=== PATIENT | female | born 1980 | race Caucasian/White ===

== ENCOUNTER 2023-07-24 20:57 | Day surgery (SDC) | payer OTHER, SELFPAY ==
[2023-07-24] VITALS (8 sets, daily range): BP systolic 101–123; BP diastolic 62–81; BMI 30.2; BMI 28.9
--- NOTE | 2023-07-24 13:41 | EDRN ---
Beau HOLLY in to see pt..
--- NOTE | 2023-07-24 13:50 | ED.GENMED ---
History of Present Illness
<Jose G Saavedra PA-C - Last Filed: 07/28/23 08:25>
General
Chief Complaint: Rectal Bleeding
Source: patient
Exam Limitations: none
Time Seen by Provider: 07/24/23 13:33
Travel History
Have you had any contact with someone who has COVID-19?: No
Do you have any symptoms of coronavirus? Fever > 100 degrees, chills, cough, shortness of breath, sore throat, loss of taste or smell, muscle aches, or headache?: No
History of Present Illness
History of Present Illness:
43-year-old female otherwise healthy presents complaining of 6 days worth of intermittently dark stools. She notes some dark or black in color most of them are formed however more recently it was loose. She also notes central abdominal pain aching
in nature does not radiate to the back no associated chest pain or shortness of breath. No aggravating or alleviating factors. Denies regular use of NSAIDs or alcohol. She has a couple coffee a day. No urinary symptoms. No known sick contacts.
No fever.
Phy Exam
<Jose G Saavedra PA-C - Last Filed: 07/28/23 08:25>
Physical Exam
Physical Exam:
General: Well-appearing female no acute respiratory distress
HEENT: Normocephalic atraumatic neck is supple
Heart: Regular rate and rhythm no murmurs
Lungs: Clear to auscultation bilaterally no wheezing
Abdomen: Soft mildly diffusely tender mainly to the lower quadrants bilaterally. No guarding or rebound normal bowel sounds nondistended no costovertebral angle tenderness
Extremities: No cyanosis or edema
Skin: Warm no rash
Course
<Jose G Saavedra PA-C - Last Filed: 07/28/23 08:25>
Orders/Labs/Results
Orders:
Orders
07/24/23 13:43
CT Abd/pelvis W Iv Cont Urgent
Comment:
Reason For Exam: abdominal pain, dark stool
07/24/23 14:11
Type+Screen Urgent
Complete Blood Count/With Diff Urgent
Comprehensive Metabolic Panel Urgent
HCG, Serum Qualitative Screen Urgent
Comment: ADD ON
07/24/23 14:47
Urinalysis Reflex To Culture Urgent
Date Specimen was Collected: 07/24/23
Time Specimen was Collected: 14:46
07/24/23 Dinner
Clear Liquid
At Your Request: Full Participation
Does patient need a safe tray?: No
07/24/23 15:54
Add On- LAB Urgent
Comments:: protocal
Tests Added?: HCG serum
07/24/23 18:01
US Pelvis Transvaginal Only Urgent
Comment:
Reason For Exam: RLQ pain
07/24/23 18:12
Fentanyl Citrate/Pf [Sublimaze] 25 mcg IV PACU-Q5MPRN PRN
Fentanyl Citrate/Pf [Sublimaze] 50 mcg IV PACU-Q5MPRN PRN
Meperidine [Demerol] 12.5 mg IV PACU-Q5MPRN PRN
Ondansetron Injectable [Zofran] 4 mg IV PACU-ONCEPRN PRN
Prochlorperazine [Compazine] 5 mg IV PACU-ONCEPRN PRN
Notify MD As Directed
Notify physician if: for SDS patients with known or suspected sleep obstructive sleep apnea, monitor in the
PACU.
Notify MD for any apneic/desaturation episodes
O2 Therapy [RESP] Urgent
Titrate/Wean O2 to maintain O2 sat greater than (%): 92
Special Instructions: -Provide supplemental oxygen to achieve O2 sat of 92% or greater.
-After 15 min, may wean O2 and discontinue if patient is able to maintain O2 sat of 92%
or greater during recovery period.
If patient is a discharge home, without oxygen therapy, notify anestheiologist if
unable to maintain O2 SAT of 92% or greater on room air for MD clearance.
07/24/23 18:15
Normosol (Mult Electrolytes) [Normosol-R] 1,000 ml IV PER PROTOCOL
07/24/23 20:35
Ertapenem [Invanz] 1,000 mg 0.9% Sodium Chloride [Nss] 50 ml IV ONCE
Sequential Compression Device [Pneumatic Compression Sleeves] As Directed
Type: Knee high
07/24/23 20:36
DX Deep Vein Thrombosis Video Routine
07/24/23 21:08
Fentanyl Citrate/Pf [Sublimaze] 100 mcg .ROUTE .STK-MED ONE
07/24/23 21:24
Admit Patient As Directed
Co-Sign Provider:
Level of Care: Post Proc/Surg Recovery
Assign to:: Medical/Surgical
Physician / Group: Jose G Eddy MD
Diagnosis: Acute appendicitis
Reason for Overnight Stay: Standard of Care
Code Status As Directed
Resuscitation Status: Full Code
HYDROmorphone [Dilaudid] 0.25 mg IV Q4HPRN PRN
HYDROmorphone [Dilaudid] 0.5 mg IV Q4HPRN PRN
Melatonin 5 mg PO HSPRN PRN
Ondansetron Injectable [Zofran] 4 mg IV Q6HPRN PRN
Activity As Directed
Activity Level: Out of Bed- Ad Kalani
Anti-embolism (GRAYSON) Hose As Directed
Type: Knee high
Intake/ Output As Directed
Frequency: Per unit guidelines
Pneumatic Compression Sleeves As Directed
Type: Knee high
Vital Signs As Directed
Frequency: Post-operative guidelines
Weight As Directed
Frequency: Daily
Rx Incentive Spirometry [RESP] Routine
Frequency: q1h while awake
# of times per hour: 10
DX Deep Vein Thrombosis Video Routine
07/24/23 21:30
Normosol (Mult Electrolytes) [Normosol-R] 1,000 ml IV 100 mls/hr
07/24/23 22:00
Flush (0.9% Sodium Chloride) [Flush (Nss)] See Dose Instructions IV PER PROTOCOL
Piperacillin/Tazo 3.375 Gram [Zosyn] 3.375 gram in 50 ml IV Q6H
07/25/23 00:00
Acetaminophen [Tylenol] 650 mg PO Q4HWA
07/25/23 Breakfast
NPO
Allow oral meds: Yes
Allow clear liquids: No
NPO with Ice Chips: No
07/25/23 07:28
Fentanyl Citrate/Pf [Sublimaze] 100 mcg .ROUTE .STK-MED ONE
07/25/23 07:29
Midazolam HCl [Versed] 2 mg .ROUTE .STK-MED ONE
07/25/23 07:37
Bupivacaine Pf 0.5% [Sensorcaine 0.5% Single Dose] 30 ml .ROUTE .STK-MED ONE
07/25/23 07:58
HYDROmorphone [Dilaudid] 0.25 mg IV PACU-Q5MPRN PRN
HYDROmorphone [Dilaudid] 0.5 mg IV PACU-Q5MPRN PRN
Meperidine [Demerol] 12.5 mg IV PACU-Q5MPRN PRN
Ondansetron Injectable [Zofran] 4 mg IV PACU-ONCEPRN PRN
Prochlorperazine [Compazine] 5 mg IV PACU-ONCEPRN PRN
07/25/23 07:59
Notify MD As Directed
Notify physician if: for SDS patients with known or suspected sleep obstructive sleep apnea, monitor in the
PACU.
Notify MD for any apneic/desaturation episodes
O2 Therapy [RESP] Urgent
Titrate/Wean O2 to maintain O2 sat greater than (%): 92
Special Instructions: -Provide supplemental oxygen to achieve O2 sat of 92% or greater.
-After 15 min, may wean O2 and discontinue if patient is able to maintain O2 sat of 92%
or greater during recovery period.
If patient is a discharge home, without oxygen therapy, notify anestheiologist if
unable to maintain O2 SAT of 92% or greater on room air for MD clearance.
07/25/23 08:00
Ertapenem [Invanz] 1,000 mg 0.9% Sodium Chloride [Nss] 50 ml IV ONCE
Normosol (Mult Electrolytes) [Normosol-R] 1,000 ml IV PER PROTOCOL
07/25/23 08:32
Dexamethasone Sod Phosphate [Decadron] 20 mg .ROUTE .STK-MED ONE
Lidocaine 2% Mpf [Xylocaine Mpf 2%] 100 mg .ROUTE .STK-MED ONE
Ondansetron Injectable [Zofran] 4 mg .ROUTE .STK-MED ONE
Propofol [Diprivan] 20 ml .ROUTE .STK-MED
Rocuronium [place] [Rocuronium] 50 mg .ROUTE .STK-MED ONE
07/25/23 08:56
Ketorolac [Toradol] 30 mg .ROUTE .STK-MED ONE
Sugammadex Sodium [Bridion] 200 mg .ROUTE .STK-MED ONE
07/25/23 09:01
OR Pathology Routine
Pre-Operative Diagnosis: APPENDICITIS
Operative Procedure: LAPAROSCOPIC APPENDECTOMY
Surgeon: SURJIT
Circulating Nurse: OMAR
Specimen Type: APPENDIX
07/25/23 09:09
Glycopyrrolate [Robinul] 0.2 mg .ROUTE .STK-MED ONE
Neostigmine [Prostigmin] 3 mg .ROUTE .STK-MED ONE
07/25/23 09:27
Discharge Patient As Directed
Is patient a candidate for the influenza vaccine?: No
Do you have a designated caregiver: Yes-same as spokesperson
07/25/23 09:29
Oxycodone [Roxicodone] 5 mg PO Q4HPRN PRN
07/25/23 09:50
Ondansetron Injectable [Zofran] 4 mg .ROUTE .STK-MED ONE
07/25/23 Lunch
Regular
At Your Request: Limited Participation
Does patient need a safe tray?: No
Abnormal Lab Results
07/24/23
14:11
RBC 3.79 L 10^6/uL
(4.20-5.40)
Hgb 11.7 L g/dL
(12.0-16.0)
Hct 34.5 L %
(37.0-47.0)
Chloride 108 H mmol/L
(98-107)
Creatinine 0.5 L mg/dL
(0.6-1.0)
ALT 36 H U/L
(0-35)
07/24/23 14:11
07/24/23 14:11
Vital Signs
Initial and Last Documented VS:
Initial Vital Signs
Temp Pulse Resp BP Pulse Ox
98.3 F 80 20 121/75 98
07/24/23 13:02 07/24/23 13:02 07/24/23 13:02 07/24/23 13:02 07/24/23 13:02
Last Documented Vital Signs
Temp Pulse Resp BP Pulse Ox
98.4 F 81 16 103/64 98
07/25/23 15:50 07/25/23 15:50 07/25/23 15:50 07/25/23 15:50 07/25/23 15:50
<Quentin Casillas MD - Last Filed: 07/25/23 00:19>
Orders/Labs/Results
Orders:
Orders
07/24/23 13:43
CT Abd/pelvis W Iv Cont Urgent
Comment:
Reason For Exam: abdominal pain, dark stool
07/24/23 14:11
Type+Screen Urgent
Complete Blood Count/With Diff Urgent
Comprehensive Metabolic Panel Urgent
HCG, Serum Qualitative Screen Urgent
Comment: ADD ON
07/24/23 14:47
Urinalysis Reflex To Culture Urgent
Date Specimen was Collected: 07/24/23
Time Specimen was Collected: 14:46
07/24/23 Dinner
Clear Liquid
At Your Request: Full Participation
Does patient need a safe tray?: No
07/24/23 15:54
Add On- LAB Urgent
Comments:: protocal
Tests Added?: HCG serum
07/24/23 18:01
US Pelvis Transvaginal Only Urgent
Comment:
Reason For Exam: RLQ pain
07/24/23 18:12
Fentanyl Citrate/Pf [Sublimaze] 25 mcg IV PACU-Q5MPRN PRN
Fentanyl Citrate/Pf [Sublimaze] 50 mcg IV PACU-Q5MPRN PRN
Meperidine [Demerol] 12.5 mg IV PACU-Q5MPRN PRN
Ondansetron Injectable [Zofran] 4 mg IV PACU-ONCEPRN PRN
Prochlorperazine [Compazine] 5 mg IV PACU-ONCEPRN PRN
Notify MD As Directed
Notify physician if: for SDS patients with known or suspected sleep obstructive sleep apnea, monitor in the
PACU.
Notify MD for any apneic/desaturation episodes
O2 Therapy [RESP] Urgent
Titrate/Wean O2 to maintain O2 sat greater than (%): 92
Special Instructions: -Provide supplemental oxygen to achieve O2 sat of 92% or greater.
-After 15 min, may wean O2 and discontinue if patient is able to maintain O2 sat of 92%
or greater during recovery period.
If patient is a discharge home, without oxygen therapy, notify anestheiologist if
unable to maintain O2 SAT of 92% or greater on room air for MD clearance.
07/24/23 18:15
Normosol (Mult Electrolytes) [Normosol-R] 1,000 ml IV PER PROTOCOL
07/24/23 20:35
Ertapenem [Invanz] 1,000 mg 0.9% Sodium Chloride [Nss] 50 ml IV ONCE
Sequential Compression Device [Pneumatic Compression Sleeves] As Directed
Type: Knee high
07/24/23 20:36
DX Deep Vein Thrombosis Video Routine
07/24/23 21:08
Fentanyl Citrate/Pf [Sublimaze] 100 mcg .ROUTE .STK-MED ONE
07/24/23 21:24
Admit Patient As Directed
Co-Sign Provider:
Level of Care: Post Proc/Surg Recovery
Assign to:: Medical/Surgical
Physician / Group: Jose G Eddy MD
Diagnosis: Acute appendicitis
Reason for Overnight Stay: Standard of Care
Code Status As Directed
Resuscitation Status: Full Code
HYDROmorphone [Dilaudid] 0.25 mg IV Q4HPRN PRN
HYDROmorphone [Dilaudid] 0.5 mg IV Q4HPRN PRN
Melatonin 5 mg PO HSPRN PRN
Ondansetron Injectable [Zofran] 4 mg IV Q6HPRN PRN
Activity As Directed
Activity Level: Out of Bed- Ad Kalani
Anti-embolism (GRAYSON) Hose As Directed
Type: Knee high
Intake/ Output As Directed
Frequency: Per unit guidelines
Pneumatic Compression Sleeves As Directed
Type: Knee high
Vital Signs As Directed
Frequency: Post-operative guidelines
Weight As Directed
Frequency: Daily
Rx Incentive Spirometry [RESP] Routine
Frequency: q1h while awake
# of times per hour: 10
DX Deep Vein Thrombosis Video Routine
07/24/23 21:30
Normosol (Mult Electrolytes) [Normosol-R] 1,000 ml IV 100 mls/hr
07/24/23 22:00
Flush (0.9% Sodium Chloride) [Flush (Nss)] See Dose Instructions IV PER PROTOCOL
Piperacillin/Tazo 3.375 Gram [Zosyn] 3.375 gram in 50 ml IV Q6H
07/25/23 00:00
Acetaminophen [Tylenol] 650 mg PO Q4HWA
07/25/23 Breakfast
NPO
Allow oral meds: Yes
Allow clear liquids: No
NPO with Ice Chips: No
07/25/23 07:28
Fentanyl Citrate/Pf [Sublimaze] 100 mcg .ROUTE .STK-MED ONE
07/25/23 07:29
Midazolam HCl [Versed] 2 mg .ROUTE .STK-MED ONE
07/25/23 07:37
Bupivacaine Pf 0.5% [Sensorcaine 0.5% Single Dose] 30 ml .ROUTE .STK-MED ONE
07/25/23 07:58
HYDROmorphone [Dilaudid] 0.25 mg IV PACU-Q5MPRN PRN
HYDROmorphone [Dilaudid] 0.5 mg IV PACU-Q5MPRN PRN
Meperidine [Demerol] 12.5 mg IV PACU-Q5MPRN PRN
Ondansetron Injectable [Zofran] 4 mg IV PACU-ONCEPRN PRN
Prochlorperazine [Compazine] 5 mg IV PACU-ONCEPRN PRN
07/25/23 07:59
Notify MD As Directed
Notify physician if: for SDS patients with known or suspected sleep obstructive sleep apnea, monitor in the
PACU.
Notify MD for any apneic/desaturation episodes
O2 Therapy [RESP] Urgent
Titrate/Wean O2 to maintain O2 sat greater than (%): 92
Special Instructions: -Provide supplemental oxygen to achieve O2 sat of 92% or greater.
-After 15 min, may wean O2 and discontinue if patient is able to maintain O2 sat of 92%
or greater during recovery period.
If patient is a discharge home, without oxygen therapy, notify anestheiologist if
unable to maintain O2 SAT of 92% or greater on room air for MD clearance.
07/25/23 08:00
Ertapenem [Invanz] 1,000 mg 0.9% Sodium Chloride [Nss] 50 ml IV ONCE
Normosol (Mult Electrolytes) [Normosol-R] 1,000 ml IV PER PROTOCOL
07/25/23 08:32
Dexamethasone Sod Phosphate [Decadron] 20 mg .ROUTE .STK-MED ONE
Lidocaine 2% Mpf [Xylocaine Mpf 2%] 100 mg .ROUTE .STK-MED ONE
Ondansetron Injectable [Zofran] 4 mg .ROUTE .STK-MED ONE
Propofol [Diprivan] 20 ml .ROUTE .STK-MED
Rocuronium [place] [Rocuronium] 50 mg .ROUTE .STK-MED ONE
07/25/23 08:56
Ketorolac [Toradol] 30 mg .ROUTE .STK-MED ONE
Sugammadex Sodium [Bridion] 200 mg .ROUTE .STK-MED ONE
07/25/23 09:01
OR Pathology Routine
Pre-Operative Diagnosis: APPENDICITIS
Operative Procedure: LAPAROSCOPIC APPENDECTOMY
Surgeon: SURJIT
Circulating Nurse: OMAR
Specimen Type: APPENDIX
07/25/23 09:09
Glycopyrrolate [Robinul] 0.2 mg .ROUTE .STK-MED ONE
Neostigmine [Prostigmin] 3 mg .ROUTE .STK-MED ONE
07/25/23 09:27
Discharge Patient As Directed
Is patient a candidate for the influenza vaccine?: No
Do you have a designated caregiver: Yes-same as spokesperson
07/25/23 09:29
Oxycodone [Roxicodone] 5 mg PO Q4HPRN PRN
07/25/23 09:50
Ondansetron Injectable [Zofran] 4 mg .ROUTE .STK-MED ONE
07/25/23 Lunch
Regular
At Your Request: Limited Participation
Does patient need a safe tray?: No
Abnormal Lab Results
07/24/23
14:11
RBC 3.79 L 10^6/uL
(4.20-5.40)
Hgb 11.7 L g/dL
(12.0-16.0)
Hct 34.5 L %
(37.0-47.0)
Chloride 108 H mmol/L
(98-107)
Creatinine 0.5 L mg/dL
(0.6-1.0)
ALT 36 H U/L
(0-35)
07/24/23 14:11
07/24/23 14:11
Vital Signs
Initial and Last Documented VS:
Initial Vital Signs
Temp Pulse Resp BP Pulse Ox
98.3 F 80 20 121/75 98
07/24/23 13:02 07/24/23 13:02 07/24/23 13:02 07/24/23 13:02 07/24/23 13:02
Last Documented Vital Signs
Temp Pulse Resp BP Pulse Ox
98.4 F 81 16 103/64 98
07/25/23 15:50 07/25/23 15:50 07/25/23 15:50 07/25/23 15:50 07/25/23 15:50
<Jose G Saavedra PA-C - Last Filed: 07/28/23 08:25>
MDM/Problems Addressed
Differential Diagnosis Includes:
Patient with mid abdominal pain and dark stools. Check labs. Consider colitis versus ulcer versus gastritis. She is not anticoagulated.
<Jose G Saavedra PA-C - Last Filed: 07/28/23 08:25>
*Critical Care Note
Total Time (30-74mins, 75-104mins- exclusive of procedures): Not Applicable
<Jose G Saavedra PA-C - Last Filed: 07/28/23 08:25>
Update Note
Update Note:
CT demonstrates dilated appendix measuring 1.3 cm with findings suggestive of acute appendicitis. There is a 6 cm right adnexal cyst. Radiology recommending ultrasound. Trans vaginal pelvic ultrasound ordered. Will keep patient NPO. General
surgery aware. Will intervene if ultrasound is negative
ED Attending Note
<Jose G Saavedra PA-C - Last Filed: 07/28/23 08:25>
-
Portions of this chart may have been created with voice recognition software.� Occasional wrong word or��sound alike� substitutions may have occurred due to the inherent limitations of voice recognition software.
<Quentin Casillas MD - Last Filed: 07/25/23 00:19>
ED Attending Note
Patient seen and examined by attending physician: Yes
ED Attending Note:
I have seen and evaluated the patient with a [id number] encounter. I have spoken to the advance practicer provider and involved in the medical history, the physical exam, medical decision making.
Evaluation and management service: agree unless noted differently below.
Results interpretation: agree unless noted differently below.
Focused HPI: 43-year-old female presents to the emergency room for evaluation of nausea, lack of appetite, dark stools and abdominal discomfort. Patient reports symptoms have been ongoing for the past week or so. She says abdominal discomfort
somewhat mild but mostly in the lower abdomen. Her main concern is that she has been having she says dark red blood in her stools for the past week or so. She says that she has had some nausea had a few episodes of nonbloody vomiting. She has no
appetite. Came to the emergency room for assessment.
Physical exam: Awake and alert not in distress. Vital signs normal. Abdomen soft, tender to palpation right lower quadrant; she has a positive Rovsing sign with palpation of left lower abdomen. PA performed rectal exam stool Hemoccult negative.
Medical Decision Making: Patient presents with abdominal discomfort, nausea, vomiting, dark stools. Vital signs normal. She had lab work sent including CBC which showed no clinically significant abnormalities, CMP which was unremarkable. hCG was
negative. Urinalysis clean. She was sent for a CT of the abdomen pelvis which shows likely acute appendicitis. There was a question of adnexal pathology and so she was sent for pelvic ultrasound which was significant only for a right ovarian cyst
versus endometrioma but otherwise unremarkable. Case was discussed with general surgery plan for appendectomy. Admitted to surgical service.
Discharge Plan
Departure
Patient Disposition: Admit
Date of Disposition: 07/24/23
Time of Disposition: 18:08
Admit to: Med/Surg
Presentation/result/management discussed w/ accepting MD/DO: Surjit
Discharge Problem:
Acute appendicitis
Interventions
Interventions:
*Risk Screen - Suicide Last Done: 07/24/23 14:20
*General Assessment Last Done: 07/24/23 14:20
*Neglect/Abuse Screening Last Done: 07/24/23 14:20
ED- Fall Risk Assessment Last Done: 07/24/23 14:20
*ED COVID-19 Vaccine History Last Done: 07/24/23 14:20
*Nursing Disposition Last Done: 07/24/23 21:14
WH-Fjxeku-Rsinxkkgtu Assessment Last Done: 07/24/23 14:30
ED- Cardiac Assessment Last Done: 07/24/23 14:20
ED- Pulmonary Assessment Last Done: 07/24/23 14:20
Discharge Date and Time
Discharge Date/Time: 07/24/23 21:15
--- NOTE | 2023-07-24 14:00 | EDRN ---
Pt ambulated to BR w/ urine spec cup and wipes, poop receptacle placed in toilet for possible specimen. Pt verbalized understanding of collection instructions.
[2023-07-24 14:32] LABS: % Basophils 0.4 % (0-2); % Eosinophils 2.2 % (0-6); % Immature Granulocytes 0.3 % (0-0.5); % Lymphocytes 33.7 % (20.5-51.1); % Monocytes 5.5 % (1.7-9.3); % Neutrophils 57.9 % (42.2-75.2); Absolute Eosinophils 0.2 10^3/uL (0-0.7); Absolute Lymphocytes 2.4 10^3/uL (1.2-3.4); Absolute Monocytes 0.4 10^3/uL (0.1-0.6); Absolute Neutrophils 4.2 10^3/uL (1.4-6.5); Hematocrit 34.5 % (37.0-47.0); Hemoglobin 11.7 g/dL (12.0-16.0); Mean Corp Hgb Conc. 33.9 g/dL (33.0-37.0); Mean Corpuscular Hgb 30.9 pg (27.0-31.0); Mean Platelet Volume 9.8 fL (7.4-10.4); Nucleated Red Blood Cells % 0 %; Platelet Count 358 10^3/uL (130-400); Red Blood Cell Count 3.79 10^6/uL (4.20-5.40); Red Cell Dist. Width 13.4 % (11.5-14.5); White Blood Cell Count 7.3 10^3/uL (4.8-10.8)
[2023-07-24 14:51] LABS: ALT (SGPT) 36 U/L (0-35); AST (SGOT) 25 U/L (14-36); Albumin 4.3 g/dl (3.5-5.0); Alkaline Phosphatase 88 U/L (38-126); Blood Urea Nitrogen 11 mg/dl (7-17); Calcium 9.1 mg/dl (8.4-10.2); Carbon Dioxide 24 mmol/L (22-30); Chloride 108 mmol/L (98-107); Estimated Creatinine Clearance 122 ml/min; Glucose 89 mg/dl (70-99); Potassium 4.2 mmol/L (3.5-5.1); Sodium 137 mmol/L (135-145); Total Bilirubin 0.4 mg/dl (0.2-1.3); Total Protein 6.9 g/dl (6.3-8.2); eGFR > 60.00
[2023-07-24 15:09] LABS: Urine Albumin Negative (Neg - Trace); Urine Bilirubin Negative (Negative); Urine Character Clear (Clear); Urine Color Yellow; Urine Glucose Negative (Negative); Urine Ketone Negative (Negative); Urine Leukocyte Negative (Negative); Urine Nitrite Negative (Negative); Urine Occult Blood Negative (Negative); Urine Specific Gravity 1.005 (<1.030); Urine Urobilinogen Negative (Neg - 1+); Urine pH 6.5 (5.0-9.0)
--- NOTE | 2023-07-24 15:10 | EDRN ---
Urine spec obtained and sent.
[2023-07-24 16:33] LABS: HCG, Serum Qualitative Screen Negative
--- NOTE | 2023-07-24 20:37 | HPS.HSE ---
Family Physician
-
Family Physician: Amrit Nguyen DO
Chief Complaint
-
Nausea, abdominal discomfort, and change in bowel habits.
History of Present Illness
43-year-old healthy female presents to the emergency room with a 6-day history of dark stools alternating with light stools. Most of the stools have been formed but there has been some looseness, the stools are not watery. She has had some lower
abdominal discomfort in both quadrants. She has had persistent nausea but no vomiting, fevers or chills. She denies any vaginal discharge. She has a known right ovarian cyst. Only past surgical history was removal of uterine fibroids in the past.
Medical History
Past Medical History
Past Medical History: Reports None
Past Surgical History: Reports Gynocological (As per the HPI)
Social History
Tobacco: Non-smoker
Alcohol: None
Employment: Employed
Family History
Family History: Not pertinent
Allergies / Home Medications
Allergies reflects when Allergies were last updated in [employer].
Home Medications with original date entered in [employer]
Allergy/Medication List:
No medications
No known drug allergies
Review of Systems
-
History Source: Patient
A 12 point ROS was completed and negative except as noted: Yes
Physical Exam
Vital Signs
Vital Signs
Temp Pulse Resp BP Pulse Ox
98.3 F 77 14 123/81 97
07/24/23 13:02 07/24/23 20:30 07/24/23 20:30 07/24/23 18:00 07/24/23 20:30
Physical Exam
General: Well Developed, Well Nourished and No Apparent Distress
HEENT: Anicteric
Respiratory: Clear
Cardiac: Regular Rhythm
GI: Soft and Tender (Mild in the right lower quadrant toward the midline; no guarding or rebound.)
Musculoskeletal: No Edema
Neuro: Awake and Alert
Laboratory Results
-
07/24/23 14:11
07/24/23 14:11
Laboratory Results
Total Bilirubin 0.4 mg/dl (0.2-1.3) 07/24/23 14:11
AST 25 U/L (14-36) 07/24/23 14:11
ALT 36 U/L (0-35) H 07/24/23 14:11
Alkaline Phosphatase 88 U/L (38-126) 07/24/23 14:11
Data Reviewed
-
CT Scan: Image Personally Visualized and interpreted, Report Reviewed by me and Discussed with Patient
Ultrasound: Image Personally Visualized and interpreted, Report Reviewed by me and Discussed with Patient
Lab Data: Labs Reviewed by me and Discussed with Patient
Impression/Plan
-
IMPRESSION: Possible acute appendicitis. She has an abnormal appearing appendix which is dilated and has fluid around it. Clinically is unclear if it accounts for all of her symptoms. She also has a known ovarian cyst which does not appear to be
torsed. I reviewed the current findings and treatment options including nonoperative management with antibiotics versus laparoscopy and removal of the appendix. Without surgery there is a risk of recurrence and possible perforation. Risks of
surgery include, but are not limited to, bleeding, infection, adhesions, hernias, fistula, injury other structures, DVT, cardiopulmonary complications, and risks of anesthesia. I also reviewed the typical recovery and functional results. After
lengthy discussion she wishes to proceed with surgery and arrangements are in progress. I clearly explained that some of her symptoms might persist after surgery which would require further evaluation.
PLAN: Laparoscopic appendectomy (possible open)
--- NOTE | 2023-07-24 21:28 | W.PN.UPDATE ---
Update Note
Progress Note Update
Due to the OR not being available for several hours, the plan is to perform the surgery 1st case tomorrow. She is in agreement.
[2023-07-24] MEDS: ZOSYN 50 IV (22:45)
[2023-07-24] MEDS: TYLENOL 650 MG PO (22:46)
[2023-07-24] MEDS: MELATONIN 5 MG PO (22:46)
[2023-07-24] MEDS: NORMOSOL-R 1000 IV (22:47)
[2023-07-25] VITALS (7 sets, daily range): BP systolic 97–117; BP diastolic 54–76
[2023-07-25] MEDS: TYLENOL 650 MG PO ×3 (04:10→16:34)
[2023-07-25] MEDS: ZOSYN 50 IV ×3 (04:10→16:33)
--- NOTE | 2023-07-25 06:40 | PTCARENOTE ---
Patient received from PACU via stretcher and was assisted to bed by staff. She was oriented to room and surroundings. She has c/o dull upper abdominal pain controlled with Tylenol as er order. IVF and IV Abx as ordereed. OR Prep done. Patient
slept comfortably through the night.
[2023-07-25] MEDS: TYLENOL PO (07:29)
--- NOTE | 2023-07-25 09:25 | W.IMMPOSTOP ---
Surgical Immed Post Op Note
-
Primary Surgeon: Jose G Eddy MD
Pre-op Diagnosis: Acute appendicitis
Post-op Diagnosis: Possible mucocele/LAMN
Procedure Performed: Laparoscopic appendectomy
Anesthesia Type: GET
Specimen / Cultures: appendix
Estimated Blood Loss: 5cc
Complications: None
Operative Findings: Thick-walled appendix
No evidence of perforation
Uterine fibroids and right ovarian cyst (photos taken)
Patient's mother updated via telephone.
--- NOTE | 2023-07-25 09:27 | W.DS.TRANS ---
DC Summary - Accounting Systems Analyst
-
Discharge Instructions:
Discharge Diagnosis/Procedures Status post appendectomy
Diet As tolerated,Regular
Activity No strenuous activity
Driving Restrictions Do not drive while taking narcotics
Bathing Restrictions OK to Shower
Wound Care Allow glue to naturally fall off. Do not pick
at incisions.
Instructions: Appendectomy, Laparoscopic Surgery (DC)
Stand-Alone Forms:
Changes to Home Medications: Yes
Discharge Medications:
DC Medications w/original date entered in [employer]
oxycodone 5 mg tablet 5 mg PO Q6H PRN Pain #20 tabs 07/25/23
Home Medication Changes
oxycodone 5 mg tablet 5 mg PO Q6H PRN Pain #20 tabs 07/25/23
Pending Results: Yes
Additional Pending Results:
OR pathology
[2023-07-25] MEDS: ZOFRAN 4 MG IV (09:50)
[2023-07-25] MEDS: NORMOSOL-R 1000 IV (09:51)
--- NOTE | 2023-07-25 10:25 | PTCARENOTE ---
Patient received from PACU in bed; IVF infusing; Surgical site assessed with ENGINEERING TECHNICAL ANALYST; Call urbina within reach; Bed lowest position, wheels locked; Safety maintained
--- NOTE | 2023-07-25 12:08 | CM ---
manager merchandise reviewed patient's chart and met with patient and patient lives alone in a duplex is independent with adl's and ambulation, patient drives, patient has a prescription plan and patient uses [facility] pharmacy.
PCP: Dr Nguyen
Plan: Home no needs.
[2023-07-25] MEDS: ROXICODONE 5 MG PO (16:38)
--- NOTE | 2023-07-25 18:26 | PTCARENOTE ---
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 Eddy notified
[2023-07-25] MEDS: NORMOSOL-R IV (18:38)
--- NOTE | 2023-07-25 19:42 | PTCARENOTE ---
Per Dr. Eddy - pain medications filled to [facility] pharmacy. IV removed, d/c instructions reviewed, pt discharged home via wheelchair
== END 2023-07-25 19:43 | disposition home or self-care (01) ==
LOC: SDS 20:57
PROVIDERS: Physician Assistant; ATTENDING PHYSICIAN Surgery; EMERGENCY PHYSICIAN Emergency Medicine; FAMILY PHYSICIAN Student in an Organized Health Care Education/Training Program
DX: K35.80 Unspecified acute appendicitis (principal); K56.1 Intussusception; K62.5 Hemorrhage of anus and rectum; R10.31 Right lower quadrant pain; N83.201 Unspecified ovarian cyst, right side; D25.9 Leiomyoma of uterus, unspecified
CPT/HCPCS: 44970; 88304; 74177; 76830; 80053; 81003; 84703; 85025; 86850; 86900; 86901; 99285; J1335; Q9967